=== PATIENT | male | born 1965 | race Caucasian/White ===

== ENCOUNTER 2017-09-18 10:27 | Outpatient (CLI) | payer OTHER ==
[2017-09-18 11:47] LABS: #Basophils 0.1 thou/uL (0.0-0.2); #Eosinphils 0.3 thou/uL (0.0-0.7); #Lymphocytes 1.8 thou/uL (1.20-3.40); #Monocytes 0.7 thou/uL (0.11-0.59); #Neutrophils 4.5 thou/uL (1.40-6.50); %Basophils 1.3 % (0.0-1.0); %Lymphocytes 24.1 % (21.0-51.0); %Neutrophils 61.6 % (42.0-75.0); Hemoglobin 14.9 g/dL (14.0-18.0); Mean Corpuscular HGB CONC 33.5 g/dL (32.0-36.0); Mean Corpuscular Volume 95.5 fl (80.0-94.0); Mean Platelet Volume 8.4 fL (7.4-10.4); Platelet Count 266 thou/uL (130-400); RBC Distribution Width 11.5 % (11.5-14.5); Red Blood Cell (RBC) Count 4.67 mill/uL (4.70-6.10); White Blood Cell (WBC) Count 7.4 thou/uL (4.8-10.8)
[2017-09-18 12:13] LABS: Anion Gap 10 mmol/L (10-20); BUN (Urea Nitrogen) 9 mg/dL (8.4-25.7); Calc. Creatinine Clearance 0 mL/min (70-130); Calcium 9.2 mg/dL (7.8-10.44); Carbon Dioxide 30 mmol/L (22-29); Chloride 100 mmol/L (98-107); Estimated GFR-MDRD Greater than 90; Glucose 95 mg/dL (70-105); Potassium 4.3 mmol/L (3.5-5.1); Sodium 136 mmol/L (136-145)
== END 2017-09-18 10:28 | disposition home or self-care (01) ==
LOC: LABBT 10:27
PROVIDERS: ATTEND Specialist
DX: Z01.812 Encounter for preprocedural laboratory examination (principal); K40.90 Unilateral inguinal hernia, without obstruction or gangrene, not specified as recurrent
CPT/HCPCS: 80048; 85025

== ENCOUNTER 2017-09-24 09:04 | Day surgery (SDC) | payer OTHER ==
[2017-09-18 10:58] VITALS: BMI 28.8
[2017-09-24] MEDS ORDERED: Ketorolac Tromethamine 30 MG/ML VIAL ONE (09:51)
[2017-09-24] MEDS ORDERED: CEFAZOLIN/Water 2 GM/20 ML SYRINGE ONE (09:51)
[2017-09-24] MEDS ORDERED: Fentanyl 100 MCG/2 ML VIAL ONE ×3 (10:25→13:31)
[2017-09-24] MEDS ORDERED: Bupivacaine 0.25% HCL 30 ML VIAL ONE (10:51)
[2017-09-24] MEDS ORDERED: Lidocaine 2% w/Epinephrine 1:200K 20 ML VIAL ONE (10:51)
[2017-09-24] MEDS ORDERED: PROPOFOL 200 MG/20 ML VIAL ONE (16:43)
[2017-09-24] MEDS ORDERED: Dexamethasone 20 MG/5 ML VIAL ONE (16:43)
[2017-09-24] MEDS ORDERED: Lidocaine 1% PF 5 ML VIAL ONE (16:43)
[2017-09-24] MEDS ORDERED: Ondansetron HCl/PF 4 MG/2 ML Vial ONE (16:43)
[2017-09-24] MEDS ORDERED: Succinylcholine Chloride 20 MG/ML 10 ml SYRINGE FS ONE (16:43)
[2017-09-24] MEDS ORDERED: Glycopyrrolate 0.2 MG/ML 5 ML SYRINGE ONE (16:43)
--- NOTE | 2017-09-25 07:59 | OP ---
DATE OF PROCEDURE: 09/24/2017 PREOPERATIVE DIAGNOSIS: Large inguinoscrotal hernia on the right side with a smaller palpable hernia on the left side. POSTOPERATIVE DIAGNOSIS: A large indirect right inguinal hernia and a smaller left indirect inguinal hernia with a substantial cord lipomas bilaterally. PROCEDURES PERFORMED: Robotic bilateral inguinal hernia repair with mesh using a large 3DMax patch b ilaterally, excision of large cord lipomas bilaterally. SURGEON: Dr. Fredi Ness. ANESTHESIA: General endotracheal. INDICATIONS: The patient is a 51-year-old white male. He presented with a large right-sided inguina l hernia extending down into the scrotum. On examination, he has a smaller left inguinal hernia and I recommended robotic repair. OPERATIVE PROCEDURE IN DETAIL: Informed consent was obtained. The patient was taken to the operatin g room where general endotracheal anesthesia was obtained with the patient in supine position. Aragon catheter was placed, abdomen was trimmed of hair, prepped with ChloraPrep, draped in sterile fashion . Local anesthetic was infiltrated and a 12 mm supraumbilical incision was created through which a V eress needle was passed into the peritoneal cavity. Pneumoperitoneum was established using carbon di oxide up to a pressure of 15 mmHg. A 12 mm trocar port was passed through this same incision. Lapar oscopic camera was passed through this port. Under direct vision, two 8 mm robotic ports were placed at the supraumbilical level on either side of midline. The robot was docked to the ports and the camera operation was continued from the robot console. Exa mination revealed a large right-sided indirect inguinal hernia with a smaller left-sided indirect ing uinal hernia. Attention was turned first to the right side. A transverse incision was created in the peritoneum several centimeters superior to the obvious herni a defect. Preperitoneal dissection was carried inferiorly. I was clearly able to dissect the pubic tubercle and Mason's ligament. The lateral space was developed uneventfully. Attention was turned to the large hernia sac. I began trying to mobilize the hernia sac away from the cord structures. D ue to the large size of the hernia as well as the marked extension down into the inguinal canal and s crotum, I eventually decided to divide the hernia sac rather than dissecting the whole structure. Th is was sharply dissected away from the cord structures after it was divided. I widely mobilized the peritoneum on the posterior aspect. I further incised the area of the median umbilical ligament on t he right to allow use of this for some of the peritoneal closure. A large right-sided 3DMax mesh patch was obtained and placed in the preperitoneal space. It was secu red in place with 4 interrupted sutures of 2-0 Vicryl. The peritoneum was then carefully closed usin g a couple of sutures of 3-0 Stratafix utilizing the medial umbilical ligament to assist with closure . Not mentioned above is that the patient had a large right-sided cord lipomas. These were carefully d issected off the cord and were incorporated in the peritoneal closure. Attention was then turned to the left side. A mirror image incision and dissection was carried out. There was not a large hernia sac to dissect and the peritoneal dissection was therefore much easier. The patient actually had larger cord lipomas on the left than on the right. There was also an area of weakness involving the direct space and the femoral canal. These were all dissected appropriatel y. The mesh patch was deployed and fixated in a similar fashion and the peritoneum was closed with t he Stratafix suture, again incorporated the cord lipomas. The 12 mm fascial defect was closed with 0 Vicryl suture using a GraNee needle. All ports and instru ments were removed under direct vision. Pneumoperitoneum was carefully evacuated. Quarter percent M arcaine with epinephrine was infiltrated in each port site. Skin edges approximated with 4-0 Monocry l subcuticular suture. Dermabond was placed externally. There were no complications. Patient ingrid ated the procedure well and was taken to recovery room in stable condition.
== END 2017-09-24 16:00 | disposition home or self-care (01) ==
LOC: SDC 09:04
PROVIDERS: ATTEND Specialist
PROC: 0YUA0JZ Supplement Bilateral Inguinal Region with Synthetic Substitute, Open Approach (ICD-10-PCS; principal; 2017-09-24)
PROC: 8E0W0CZ Robotic Assisted Procedure of Trunk Region, Open Approach (ICD-10-PCS; principal; 2017-09-24)
DX: K40.20 Bilateral inguinal hernia, without obstruction or gangrene, not specified as recurrent (principal); D17.6 Benign lipomatous neoplasm of spermatic cord; N48.6 Induration penis plastica; K22.0 Achalasia of cardia; Z90.89 Acquired absence of other organs; Z98.890 Other specified postprocedural states
CPT/HCPCS: 96374; C1781; J0131; J1100; J1885; J2001; J2405; J2704; J3010; S0020

== ENCOUNTER 2018-04-19 16:01 | Emergency (ER) | payer OTHER ==
[2018-04-19] MEDS ORDERED: Adacel (T-DAP) 0.5 ML VIAL ONE (17:47)
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
[2018-04-19] MEDS ORDERED: Lidocaine 1% (PF) 30 ML VIAL ONE (18:19)
[2018-04-19] MEDS ORDERED: Emtricitabine/Tenofovir 200-300 MG TAB PO SCH (18:45)
[2018-04-19] MEDS ORDERED: Raltegravir Potassium 400 MG TAB PO SCH (19:00)
[2018-04-19 19:36] LABS: Anion Gap 12 mmol/L (10-20); BUN (Urea Nitrogen) 9 mg/dL (8.4-25.7); Calc. Creatinine Clearance 0 mL/min (70-130); Calcium 9.9 mg/dL (7.8-10.44); Carbon Dioxide 27 mmol/L (22-29); Chloride 100 mmol/L (98-107); Estimated GFR-MDRD 81; Glucose 101 mg/dL (70-105); Potassium 3.4 mmol/L (3.5-5.1); Sodium 136 mmol/L (136-145)
[2018-04-19 19:57] LABS: HIV (1/2) Antibody/Antigen Non-Reactive (NonReactive); HIV 1/2 INDEX 0.07 S/CO (<1.00); Hep B Surf AB Non-Reactive (NonReactive); Hep C IgG Ab Non-Reactive (NonReactive); Hep C Index 0.31 S/CO (0-0.79)
== END 2018-04-19 20:42 | disposition home or self-care (01) ==
LOC: ERS 16:01
DX: S01.01XA Laceration without foreign body of scalp, initial encounter (principal); S01.311A Laceration without foreign body of right ear, initial encounter; Z79.899 Other long term (current) drug therapy; Y04.0XXA Assault by unarmed brawl or fight, initial encounter
CPT/HCPCS: 12002; 12013; 36415; 70450; 80048; 86706; 86803; 87389; 90471; 90472; 90715; 90746; J2001

== ENCOUNTER 2018-04-20 20:12 | Emergency (ER) | payer OTHER | END 2018-04-20 20:52 | disposition home or self-care (01) | LOC: SCSER 20:12 | DX: S01.311D Laceration without foreign body of right ear, subsequent encounter (principal); S01.81XD Laceration without foreign body of other part of head, subsequent encounter; Z79.899 Other long term (current) drug therapy ==

== ENCOUNTER 2020-11-28 09:43 | Observation (INO) | payer BC ==
[2020-11-28 10:07] LABS: #Basophils 0.1 thou/uL (0.0-0.2); #Eosinphils 0.2 thou/uL (0.0-0.7); #Lymphocytes 1.5 thou/uL (1.20-3.40); #Monocytes 0.6 thou/uL (0.11-0.59); #Neutrophils 7.3 thou/uL (1.40-6.50); %Basophils 1.1 % (0.0-1.0); %Eosinophils 1.7 % (0.0-10.0); %Lymphocytes 15.1 % (21.0-51.0); %Monocytes 5.9 % (0.0-10.0); %Neutrophils 76.2 % (42.0-75.0); Hemoglobin 15.9 g/dL (14.0-18.0); Mean Corpuscular HGB CONC 34.4 g/dL (32.0-36.0); Mean Corpuscular Hemoglobin 32.3 pg (27.0-31.0); Mean Platelet Volume 8.2 fL (7.4-10.4); Platelet Count 297 thou/uL (130-400); RBC Distribution Width 11.4 % (11.5-14.5); Red Blood Cell (RBC) Count 4.94 mill/uL (4.70-6.10); White Blood Cell (WBC) Count 9.6 thou/uL (4.8-10.8)
[2020-11-28 10:30] LABS: ALT (SGPT) 10 U/L (8-55); AST (SGOT) 13 U/L (5-34); Albumin 4.2 g/dL (3.5-5.0); Alkaline Phosphatase 74 U/L (40-110); Anion Gap 11 mmol/L (10-20); BUN (Urea Nitrogen) 7 mg/dL (8.4-25.7); Bilirubin, Total 0.9 mg/dL (0.2-1.2); Calc. Creatinine Clearance 0 mL/min (70-130); Calcium 9.2 mg/dL (7.8-10.44); Carbon Dioxide 29 mmol/L (22-29); Chloride 100 mmol/L (98-107); Globulin 2.8 g/dL (2.4-3.5); Glucose 99 mg/dL (70-105); Sodium 136 mmol/L (136-145)
[2020-11-28] MEDS ORDERED: Aspirin Chewable 81 MG TAB ONE (10:31)
[2020-11-28] MEDS ORDERED: Nitroglycerin 2% Ointment 1 INCH/1 GM Packet ONE (10:31)
[2020-11-28 11:19] LABS: CK (CPK) 51 U/L (30-200); Lipase 10 U/L (8-78)
[2020-11-28] MEDS ORDERED: Nitroglycerin 0.4 MG TAB (25 Tab Bottle) SL PRN (12:13)
[2020-11-28] MEDS ORDERED: Pantoprazole 40 MG VIAL ONE (12:14)
[2020-11-28] MEDS ORDERED: Acetaminophen 500 MG TAB ONE (12:44)
[2020-11-28 14:00] LABS: Troponin I Less than 0.010 ng/mL (< 0.028)
[2020-11-28 14:59] VITALS: BMI 27.3
[2020-11-28] MEDS ORDERED: hydrALAZINE 20 MG/ML VIAL SLOW IVP PRN (15:06)
[2020-11-28 17:17] LABS: Troponin I Less than 0.010 ng/mL (< 0.028)
[2020-11-28] MEDS ORDERED: Acetaminophen 325 MG TAB PO PRN (20:13)
[2020-11-29 04:42] LABS: SARS-CoV-2 PCR by NAA Not Detected (NotDetected)
[2020-11-29 05:48] LABS: Cardiac Risk 2.9 (Less than 4.5)
[2020-11-29] MEDS: Aspirin Chewable 81 MG TAB PO SCH ×2 (08:08)
[2020-11-29] MEDS ORDERED: Lisinopril 5 MG TAB PO SCH (09:00)
[2020-11-29] MEDS ORDERED: Aspirin Chewable 81 MG TAB ONE (11:07)
[2020-11-29] MEDS ORDERED: ADENOSINE 60 MG/20 ML VIAL ONE (11:49)
[2020-11-29 16:20] VITALS: BP 177/104; TEMP 98.1
== END 2020-11-29 17:00 | disposition home or self-care (01) ==
LOC: ERS 09:43 → ERHOLD 11:28 → 2SW 14:47
PROVIDERS: ADMIT Internal Medicine; ATTEND Internal Medicine
DX: G58.9 Mononeuropathy, unspecified (principal); R07.89 Other chest pain; K22.0 Achalasia of cardia; I10 Essential (primary) hypertension; Z79.899 Other long term (current) drug therapy; Z20.822 Contact with and (suspected) exposure to COVID-19
CPT/HCPCS: 36415; 71045; 71275; 78452; 80053; 80061; 82550; 83690; 83880; 84484; 85025; 85379; 87635; 93005; 93017; 94760; 96374; A9500; C9113; G0378; J0153; U0003; U0005

== ENCOUNTER 2020-12-20 12:25 | Outpatient (CLI) | payer BC ==
[2020-12-21 01:13] LABS: SARS-CoV-2 PCR by NAA Not Detected (NotDetected)
== END 2020-12-20 12:26 | disposition home or self-care (01) ==
LOC: LABBT 12:25
PROVIDERS: ATTEND Internal Medicine Gastroenterology
DX: Z01.812 Encounter for preprocedural laboratory examination (principal); Z20.822 Contact with and (suspected) exposure to COVID-19
CPT/HCPCS: 87635; U0003; U0005

== ENCOUNTER 2020-12-23 07:08 | Day surgery (SDC) | payer BC ==
[2020-12-22 11:43] VITALS: BMI 28.2
[2020-12-23] MEDS ORDERED: Dexamethasone 20 MG/5 ML VIAL ONE (08:52)
[2020-12-23] MEDS ORDERED: PROPOFOL 200 MG/20 ML VIAL ONE (08:52)
[2020-12-23] MEDS ORDERED: Ondansetron PF 4 MG/2 ML Vial ONE (08:52)
[2020-12-23] MEDS ORDERED: Lidocaine 1% PF 5 ML VIAL ONE (08:52)
== END 2020-12-23 11:25 | disposition home or self-care (01) ==
LOC: SDC 07:08
PROVIDERS: ATTEND Internal Medicine Gastroenterology
PROC: 0DJ08ZZ Inspection of Upper Intestinal Tract, Via Natural or Artificial Opening Endoscopic (ICD-10-PCS; principal; 2020-12-23)
DX: K22.0 Achalasia of cardia (principal); K21.9 Gastro-esophageal reflux disease without esophagitis; Z79.899 Other long term (current) drug therapy
CPT/HCPCS: J1100; J2405; J2704

== ENCOUNTER 2022-09-01 11:08 | Observation (INO) | payer BC ==
[2022-09-01 11:39] LABS: Mean Corpuscular HGB CONC 37.6 g/dL (32.0-36.0); Mean Corpuscular Hemoglobin 35.9 pg (27.0-31.0); Mean Corpuscular Volume 95.6 fl (78.0-98.0); Mean Platelet Volume 8.3 fL (7.4-10.4); Platelet Count 239 10x3/uL (130-400); RBC Distribution Width 11.4 % (11.5-14.5); Red Blood Cell (RBC) Count 4.44 mill/uL (4.70-6.10); White Blood Cell (WBC) Count 7.3 10x3/uL (4.8-10.8)
[2022-09-01 11:45] LABS: PTT 24.8 sec (22.9-36.1); Prothrombin Time 13.7 sec (12.0-14.7)
[2022-09-01 11:48] LABS: ALT (SGPT) 10 U/L (8-55); AST (SGOT) 13 U/L (5-34); Albumin 3.9 g/dL (3.5-5.0); Alkaline Phosphatase 74 U/L (40-110); Anion Gap 11 mmol/L (10-20); BUN (Urea Nitrogen) 10 mg/dL (8.4-25.7); Calc. Creatinine Clearance 0 mL/min (70-130); Calcium 9.4 mg/dL (7.8-10.44); Carbon Dioxide 27 mmol/L (22-29); Chloride 98 mmol/L (98-107); Estimated GFR 100; Globulin 2.7 g/dL (2.4-3.5); Glucose 113 mg/dL (70-105); Potassium 4.1 mmol/L (3.5-5.1); Protein, Total 6.6 g/dL (6.0-8.3); Sodium 132 mmol/L (136-145)
[2022-09-01 12:04] LABS: #Basophils 0.1 thou/uL (0.0-0.2); #Eosinphils 0.1 thou/uL (0.0-0.7); #Lymphocytes 1.2 thou/uL (1.20-3.40); #Monocytes 0.5 thou/uL (0.11-0.59); #Neutrophils 5.4 thou/uL (1.40-6.50); %Basophils 0.9 % (0.0-1.0); %Eosinophils 1.8 % (0.0-10.0); %Monocytes 7.4 % (0.0-10.0); Hypochromia SLIGHT = 6-15 cells (100X) (0-5/hpf); MDiff Complete? YES; Platelet Morphology Comment Appears Adequate
[2022-09-01] MEDS ORDERED: Aspirin Chewable 81 MG TAB ONE (12:43)
[2022-09-01] MEDS ORDERED: Labetalol HCl 100 MG/20 ML VIAL SLOW IVP PRN (13:05)
[2022-09-01] MEDS ORDERED: hydrALAZINE 20 MG/ML VIAL SLOW IVP PRN (13:05)
[2022-09-01] MEDS ORDERED: Acetaminophen 325 MG TAB PO PRN (13:08)
[2022-09-01] MEDS ORDERED: Ondansetron PF 4 MG/2 ML Vial IVP PRN (13:08)
[2022-09-01] MEDS ORDERED: Senokot S 8.6-50 MG TAB PO PRN (13:08)
[2022-09-01] MEDS ORDERED: Calcium Carbonate 500 MG ChewTAB PO PRN (13:08)
[2022-09-01] MEDS ORDERED: Ondansetron ODT 4 MG TAB PO PRN (13:08)
[2022-09-01] MEDS ORDERED: Artificial Tear Sol 15 ML BOT EA EYE PRN (13:19)
[2022-09-01] MEDS ORDERED: Sodium Chloride 0.9% 1,000 ML IV SCH (13:30)
[2022-09-01 13:41] LABS: Magnesium 1.9 mg/dL (1.6-2.6)
[2022-09-01] MEDS ORDERED: Electrolyte Replacement Protocol FS SCH (14:30)
[2022-09-01 14:55] LABS: Troponin I Less than 0.010 ng/mL (< 0.028)
[2022-09-01] MEDS ORDERED: Iopamidol-370 76% 500 ML 1 ML ONE (15:38)
[2022-09-01 17:11] VITALS: BMI 26.6
[2022-09-01] MEDS ORDERED: Magnesium 2 GM/50 ML(in water) 2 GM in Premix Bag 1 BAG IVPB SCH (20:00)
[2022-09-01] MEDS: Atorvastatin Calcium 40 MG TAB PO SCH (21:04)
[2022-09-01] MEDS: Famotidine 20 MG TAB PO SCH (21:04)
[2022-09-02 05:48] LABS: Hemoglobin A1c 5.1 % (4.0-6.0)
[2022-09-02 06:00] LABS: Cardiac Risk 3.5 (Less than 4.5)
[2022-09-02] MEDS ORDERED: Aspirin 325 mg Enteric Coated Tablet PO SCH (09:00)
[2022-09-02] MEDS: Famotidine 20 MG TAB PO SCH ×2 (09:31→20:31)
[2022-09-02] MEDS ORDERED: Bisacodyl 5 MG TAB PO PRN (14:05)
[2022-09-02] MEDS ORDERED: Labetalol HCl 100 MG/20 ML VIAL SLOW IVP PRN (14:38)
[2022-09-02] MEDS ORDERED: hydrALAZINE 20 MG/ML VIAL SLOW IVP PRN (14:38)
[2022-09-02] MEDS: Docusate 100 MG CAP PO SCH (20:30)
[2022-09-02] MEDS: Atorvastatin Calcium 40 MG TAB PO SCH (20:30)
[2022-09-03 07:11] LABS: Magnesium 1.9 mg/dL (1.6-2.6)
[2022-09-03] MEDS ORDERED: Magnesium 2 GM/50 ML(in water) 2 GM in Premix Bag 1 BAG IVPB SCH (08:00)
[2022-09-03] MEDS: Docusate 100 MG CAP PO SCH (08:10)
[2022-09-03] MEDS: Famotidine 20 MG TAB PO SCH (08:10)
[2022-09-03] MEDS ORDERED: Clopidogrel Bisulfate 75 MG TAB PO SCH (09:00)
[2022-09-03] MEDS ORDERED: Aspirin 81 mg Enteric Coated Tablet PO SCH (09:00)
[2022-09-03] MEDS ORDERED: Cyclobenzaprine 10 MG TAB PO SCH (11:30)
[2022-09-03] MEDS ORDERED: Gabapentin 100 MG CAP PO SCH ×2 (11:30→21:00)
[2022-09-03 16:24] VITALS: BP 130/80; TEMP 97.7
== END 2022-09-03 16:55 | disposition home or self-care (01) ==
LOC: ERS 11:08 → NEURO 13:08
PROVIDERS: ADMIT Family Medicine; ATTEND Family Medicine
DX: G45.9 Transient cerebral ischemic attack, unspecified (principal); I10 Essential (primary) hypertension; K21.9 Gastro-esophageal reflux disease without esophagitis; E87.1 Hypo-osmolality and hyponatremia; E83.42 Hypomagnesemia; Z79.899 Other long term (current) drug therapy
CPT/HCPCS: 36415; 36416; 70450; 70496; 70498; 70551; 71045; 80053; 80061; 82607; 83036; 83735; 84484; 85025; 85610; 85730; 93005; 93306; 93880; 96372; 96374; 96376; G0378; J1650; J3475; J7050; Q9967

== ENCOUNTER 2024-08-31 17:07 | Inpatient (IN) | payer BC, SELFPAY ==
[2024-08-31 19:13] LABS: %Basophils 1.3 % (0.0-1.0); %Eosinophils 3.7 % (0.0-10.0); %Lymphocytes 16.5 % (21.0-51.0); %Monocytes 9.7 % (0.0-10.0); %Neutrophils 68.4 % (42.0-75.0); Hematocrit 22.1 % (42.0-52.0); Hemoglobin 7.1 g/dL (14.0-18.0); Mean Corpuscular HGB CONC 32.1 g/dL (32.0-36.0); Mean Corpuscular Hemoglobin 27.2 pg (27.0-31.0); Mean Corpuscular Volume 84.7 fL (78.0-98.0); Mean Platelet Volume 10.3 fL (7.4-10.4); Platelet Count 409 10x3/uL (130-400); RBC Distribution Width 13.3 % (11.5-14.5); Red Blood Cell (RBC) Count 2.61 mill/uL (4.70-6.10)
[2024-08-31 19:30] LABS: ALT (SGPT) 8 U/L (Less than 45); AST (SGOT) 17 U/L (11-34); Albumin 3.2 g/dL (3.1-4.5); Alkaline Phosphatase 93 U/L (40-110); Anion Gap 9 mmol/L (10-20); BUN (Urea Nitrogen) 13 mg/dL (8.4-25.7); Bilirubin, Total 0.2 mg/dL (0.3-1.2); Calc. Creatinine Clearance 0 mL/min (70-130); Calcium 8.9 mg/dL (7.8-10.44); Carbon Dioxide 27 mmol/L (22-29); Chloride 101 mmol/L (98-107); Estimated GFR 105; Globulin 2.8 g/dL (2.4-3.5); Glucose 105 mg/dL (70-105); Potassium 4.3 mmol/L (3.5-5.1); Sodium 133 mmol/L (136-145)
[2024-08-31] MEDS ORDERED: Pantoprazole 40 MG VIAL ONE (20:47)
[2024-08-31 21:07] LABS: Troponin I Less than 0.010 ng/mL (< 0.028)
[2024-08-31 21:29] LABS: PTT 29.6 sec (22.9-36.1); Prothrombin Time 13.4 sec (12.0-14.7)
[2024-08-31 22:53] VITALS: BMI 23.4
[2024-08-31] MEDS ORDERED: Acetaminophen 325 MG TAB PO PRN (23:08)
[2024-08-31] MEDS ORDERED: Ondansetron PF 4 MG/2 ML Vial IVP PRN (23:08)
[2024-09-01 00:57] LABS: Hematocrit 21.8 % (42.0-52.0); Hemoglobin 7.3 g/dL (14.0-18.0)
[2024-09-01 04:19] LABS: #Basophils 0.07 10x3/uL (0.0-0.2); %Basophils 1.1 % (0.0-1.0); %Lymphocytes 26.3 % (21.0-51.0); %Monocytes 12.5 % (0.0-10.0); %Neutrophils 54.8 % (42.0-75.0); Hematocrit 21.3 % (42.0-52.0); Mean Corpuscular HGB CONC 32.9 g/dL (32.0-36.0); Mean Corpuscular Hemoglobin 27.9 pg (27.0-31.0); Mean Corpuscular Volume 84.9 fL (78.0-98.0); Mean Platelet Volume 10.9 fL (7.4-10.4); Platelet Count 323 10x3/uL (130-400); RBC Distribution Width 13.4 % (11.5-14.5); Red Blood Cell (RBC) Count 2.51 mill/uL (4.70-6.10)
[2024-09-01 04:21] LABS: Anion Gap 10 mmol/L (10-20); BUN (Urea Nitrogen) 10 mg/dL (8.4-25.7); Calc. Creatinine Clearance 133 mL/min (70-130); Calcium 8.1 mg/dL (7.8-10.44); Carbon Dioxide 26 mmol/L (22-29); Chloride 104 mmol/L (98-107); Estimated GFR 106; Glucose 87 mg/dL (70-105); Potassium 3.9 mmol/L (3.5-5.1); Sodium 136 mmol/L (136-145)
[2024-09-01 09:19] VITALS: BMI 23.4
[2024-09-01] MEDS: Pantoprazole 40 MG VIAL IVP SCH (10:35)
[2024-09-01 11:10] LABS: Hematocrit 25.1 % (42.0-52.0); Hemoglobin 8.5 g/dL (14.0-18.0)
[2024-09-01] MEDS ORDERED: Phenol 177 ML BOT PO PRN (15:32)
[2024-09-01] MEDS: GoLYTELY 4,000 ml Bottle PO SCH (16:44)
[2024-09-01 19:27] LABS: Hematocrit 25.9 % (42.0-52.0); Hemoglobin 8.5 g/dL (14.0-18.0)
[2024-09-02 05:24] LABS: #Basophils 0.12 10x3/uL (0.0-0.2); %Basophils 1.9 % (0.0-1.0); %Eosinophils 3.9 % (0.0-10.0); %Lymphocytes 29.8 % (21.0-51.0); %Monocytes 13.5 % (0.0-10.0); %Neutrophils 50.4 % (42.0-75.0); Hematocrit 24.3 % (42.0-52.0); Hemoglobin 7.8 g/dL (14.0-18.0); Mean Corpuscular HGB CONC 32.1 g/dL (32.0-36.0); Mean Corpuscular Hemoglobin 27.7 pg (27.0-31.0); Mean Corpuscular Volume 86.2 fL (78.0-98.0); Mean Platelet Volume 10.7 fL (7.4-10.4); Platelet Count 339 10x3/uL (130-400); RBC Distribution Width 14.1 % (11.5-14.5); Red Blood Cell (RBC) Count 2.82 mill/uL (4.70-6.10)
[2024-09-02 05:43] LABS: Anion Gap 12 mmol/L (10-20); BUN (Urea Nitrogen) 8 mg/dL (8.4-25.7); Calc. Creatinine Clearance 137 mL/min (70-130); Calcium 8.1 mg/dL (7.8-10.44); Carbon Dioxide 25 mmol/L (22-29); Chloride 104 mmol/L (98-107); Estimated GFR 107; Glucose 87 mg/dL (70-105); Potassium 3.8 mmol/L (3.5-5.1); Sodium 137 mmol/L (136-145)
[2024-09-02] MEDS: FLU (Fluarix Triv) TS24-25(6MOS UP)/PF 45 MCG/0.5 ML Syringe IM ONE (09:28)
[2024-09-02] MEDS ORDERED: Dexamethasone 4 mg/ml Vial ONE (11:32)
[2024-09-02] MEDS ORDERED: SUCCINYLCHOLINE/SOD CL,ISO/PF 200 MG/10 ML SYRINGE FS ONE (11:32)
[2024-09-02] MEDS ORDERED: Lidocaine 2% PF 5 ML VIAL ONE (11:32)
[2024-09-02] MEDS ORDERED: Ondansetron PF 4 MG/2 ML Vial ONE (11:32)
[2024-09-02] MEDS: Metoprolol Succinate XL 50 MG ER.TAB PO SCH (19:49)
[2024-09-03 04:59] LABS: #Basophils 0.03 10x3/uL (0.0-0.2); #Eosinophils Less than 0.03 10x3/uL (0.0-0.7); %Basophils 0.3 % (0.0-1.0); %Eosinophils 0.2 % (0.0-10.0); %Lymphocytes 11.2 % (21.0-51.0); %Monocytes 7.8 % (0.0-10.0); %Neutrophils 80.1 % (42.0-75.0); Hematocrit 24.9 % (42.0-52.0); Hemoglobin 8.2 g/dL (14.0-18.0); Mean Corpuscular HGB CONC 32.9 g/dL (32.0-36.0); Mean Corpuscular Hemoglobin 27.9 pg (27.0-31.0); Mean Corpuscular Volume 84.7 fL (78.0-98.0); Mean Platelet Volume 10.7 fL (7.4-10.4); Platelet Count 399 10x3/uL (130-400); RBC Distribution Width 14.1 % (11.5-14.5); Red Blood Cell (RBC) Count 2.94 mill/uL (4.70-6.10)
[2024-09-03 08:01] LABS: Anion Gap 13 mmol/L (10-20); BUN (Urea Nitrogen) 7 mg/dL (8.4-25.7); Calc. Creatinine Clearance 137 mL/min (70-130); Calcium 8.3 mg/dL (7.8-10.44); Carbon Dioxide 22 mmol/L (22-29); Chloride 104 mmol/L (98-107); Estimated GFR 107; Glucose 98 mg/dL (70-105); Potassium 3.6 mmol/L (3.5-5.1); Sodium 135 mmol/L (136-145)
[2024-09-03] MEDS ORDERED: PROPOFOL 20 ML ONE (11:17)
[2024-09-03] MEDS ORDERED: Lidocaine 2% PF 5 ML VIAL ONE (11:20)
[2024-09-03] MEDS ORDERED: SUCCINYLCHOLINE/SOD CL,ISO/PF 200 MG/10 ML SYRINGE FS ONE (11:20)
[2024-09-03] MEDS ORDERED: Ondansetron PF 4 MG/2 ML Vial ONE (11:23)
[2024-09-03] MEDS ORDERED: fentaNYL PF 100 MCG/2 ML SYRINGE ONE (11:54)
[2024-09-03] MEDS ORDERED: SUGAMMADEX SODIUM 200 MG/2 ML VIAL ONE (11:55)
[2024-09-03] MEDS ORDERED: Rocuronium Bromide 10 MG/ML (10ML VIAL) ONE (12:09)
[2024-09-03] MEDS: Loratadine 10 MG TAB PO SCH (13:01)
[2024-09-03] MEDS ORDERED: Iopamidol 370 76% 100 ML VIAL ONE (13:50)
[2024-09-03 16:49] VITALS: BP 147/78; TEMP 97.3
== END 2024-09-03 18:12 | disposition home or self-care (01) | DRG 812 ==
LOC: ERS 17:07 → 2SE 21:08
PROVIDERS: ADMIT Internal Medicine; ATTEND Family Medicine
PROC: 30233N1 Transfusion of Nonautologous Red Blood Cells into Peripheral Vein, Percutaneous Approach (ICD-10-PCS; 2024-08-31)
PROC: 0DBN8ZZ Excision of Sigmoid Colon, Via Natural or Artificial Opening Endoscopic (ICD-10-PCS; 2024-09-02)
PROC: 0DJ08ZZ Inspection of Upper Intestinal Tract, Via Natural or Artificial Opening Endoscopic (ICD-10-PCS; principal; 2024-09-03)
DX: D62 Acute posthemorrhagic anemia (principal); K22.0 Achalasia of cardia; K21.9 Gastro-esophageal reflux disease without esophagitis; I10 Essential (primary) hypertension; Z98.890 Other specified postprocedural states; Z82.49 Family history of ischemic heart disease and other diseases of the circulatory system; Z79.899 Other long term (current) drug therapy; K63.5 Polyp of colon
CPT/HCPCS: 36415; 36430; 70450; 74177; 80048; 82274; 84484; 85025; 85610; 85730; 86850; 86900; 86901; 88305; 93005; 93306; 96374; 96375; J1100; J2405; J2470; J2704; P9016; Q9967